=== PATIENT | female | born 1965 | race Two or more races ===

== ENCOUNTER 2019-09-10 02:50 | Emergency (ER) | payer MEDICARE, OTHER ==
[~2019-09-10] VITALS: Ht 157.5 cm; Wt 81.6 kg
[2019-09-10] MEDS ORDERED: methylPREDNISolone SOD SUCC 125 MG/2 ML VL IM ONE (04:15)
[2019-09-10] MEDS ORDERED: KETOROLAC TROMETH 60MG/2ML VIAL IM ONE (04:15)
[2019-09-10 04:50] VITALS: BP 131/80
[2019-09-10] MEDS ORDERED: ACETAMINOPHEN 500 MG TAB PO ONE (05:00)
== END 2019-09-10 06:08 | disposition home or self-care (01) ==
LOC: ER 02:52
DX: M54.16 Radiculopathy, lumbar region (principal); M48.061 Spinal stenosis, lumbar region without neurogenic claudication; M47.898 Other spondylosis, sacral and sacrococcygeal region; R50.9 Fever, unspecified; N39.0 Urinary tract infection, site not specified; M25.562 Pain in left knee; M25.561 Pain in right knee; G89.29 Other chronic pain; M54.5 Low back pain; I10 Essential (primary) hypertension; E78.5 Hyperlipidemia, unspecified; Z88.5 Allergy status to narcotic agent
CPT/HCPCS: 72131; 82962; 96372; 99284; J1885; J2930

== ENCOUNTER → 2022-07-07 | Outpatient (CLI) | payer OTHER ==
[2022-07-07 07:16] LABS: Basophils # (auto) 0 10 ^3/uL (0-0.2); Basophils % (auto) 0.7 % (0.0-2.0); Eosinophils # (auto) 0.2 10 ^3/uL (0-0.8); Eosinophils % (auto) 2.9 % (0.0-7.0); Hematocrit 37.8 % (36.0-46.0); Hemoglobin 12.6 g/dL (12.2-16.2); Lymphocytes # (auto) 3.4 10 ^3/uL (0.4-5.4); Mean Corpuscular Hemoglobin 29.7 pg (28.0-32.0); Mean Corpuscular Hgb Conc. 33.4 g/dL (32.0-36.0); Mean Corpuscular Volume 88.8 fL (80.0-100.0); Monocytes # (auto) 0.5 10 ^3/uL (0-1.3); Monocytes % (auto) 9.1 % (0.0-12.0); Neutrophils # (auto) 1.9 10 ^3/uL (1.6-8.6); Neutrophils % (auto) 31.7 % (37.0-80.0); Nucleated Red Blood Cells % 0.2 %; Red Blood Cells 4.26 10^6/uL (4.0-5.20)
[2022-07-07 07:20] LABS: Lymphocytes % (auto) 55.6 % (10.0-50.0)
[2022-07-07 07:54] LABS: Urine Bacteria NONE SEEN /hpf (None Seen); Urine Blood TRACE /uL (Negative); Urine Hyaline Cast FEW /lpf (0 - 2); Urine Specific Gravity 1.015 (1.001-1.035); Urine WBC 1 /hpf (0 - 5)
[2022-07-07 08:00] LABS: Albumin 3.7 g/dL (3.4-5.0); Calcium 9.1 mg/dL (8.5-10.1); Potassium 3.9 mmol/L (3.5-5.1)
[2022-07-07 08:05] LABS: Bilirubin, Total 0.3 mg/dL (0.2-1.0); Total Protein 7.4 g/dL (6.4-8.2)
[2022-07-07 08:53] LABS: BUN/Creatinine Ratio 34.7 (10.0-20.0)
== END | disposition home or self-care (01) ==
LOC: LAB 06:53
PROVIDERS: ATTEND Family Medicine
DX: Z00.01 Encounter for general adult medical examination with abnormal findings (principal)
CPT/HCPCS: 36415; 80053; 80061; 81001; 82306; 83036; 84443; 85025; 87086

== ENCOUNTER 2022-09-08 14:24 | Emergency (ER) | payer OTHER ==
[~2022-09-08] VITALS: Ht 157.5 cm; Wt 70.9 kg
[2022-09-08] MEDS ORDERED: PROMETHAZINE HCL 25 MG/ML 1ML IM ONE (16:30)
[2022-09-08] MEDS ORDERED: MEPERIDINE HCL (50 MG/ML) 1 ML VIAL IM ONE (16:30)
[2022-09-08 16:37] VITALS: BP 130/73
== END 2022-09-08 17:03 | disposition home or self-care (01) ==
LOC: ER 14:24
DX: G89.29 Other chronic pain (principal); M54.50 Low back pain, unspecified; E78.5 Hyperlipidemia, unspecified; I10 Essential (primary) hypertension; Z88.6 Allergy status to analgesic agent; X50.1XXA Overexertion from prolonged static or awkward postures, initial encounter; Y93.01 Activity, walking, marching and hiking; Y92.89 Other specified places as the place of occurrence of the external cause; Y99.8 Other external cause status
CPT/HCPCS: 96372; 99284; J2175; J2550

== ENCOUNTER → 2022-10-26 | Outpatient (CLI) | payer OTHER ==
[2022-10-26 07:37] LABS: Calcium 9.2 mg/dL (8.5-10.1)
[2022-10-26 07:43] LABS: BUN/Creatinine Ratio 20.3 (10.0-20.0); Bilirubin, Total 0.4 mg/dL (0.2-1.0); Total Protein 7.7 g/dL (6.4-8.2)
== END | disposition home or self-care (01) ==
LOC: LAB 06:30
PROVIDERS: ATTEND Family Medicine
DX: E11.65 Type 2 diabetes mellitus with hyperglycemia (principal); E78.5 Hyperlipidemia, unspecified
CPT/HCPCS: 36415; 80053; 80061; 83036

== ENCOUNTER → 2023-03-14 | Outpatient (CLI) | payer OTHER ==
[2023-03-14 08:00] LABS: Alanine Aminotransferase 24 U/L (7-40); Albumin 4.5 g/dL (3.2-4.8); Alkaline Phosphatase 74 U/L (46-116); Anion Gap 7 (5-15); Aspartate Aminotransferase 25 U/L (13-40); BUN/Creatinine Ratio 12.9 (10.0-20.0); Blood Urea Nitrogen 8 mg/dL (9-23); Calcium 9.7 mg/dL (8.5-10.1); Carbon Dioxide 28 mmol/L (20-30); Chloride 106 mmol/L (98-107); Glucose 111 mg/dL (74-106); Sodium 141 mmol/L (136-145); Triglycerides 147 mg/dL (< 150)
[2023-03-14 08:01] LABS: Bilirubin, Direct 0.1 mg/dL (<0.3); Cholesterol 170 mg/dL (< 200); LDL Cholesterol 102 mg/dL (< 100)
[2023-03-14 08:02] LABS: Bilirubin, Total 0.4 mg/dL (0.2-1.0); HDL Cholesterol 46 mg/dL (40-59); Total Protein 6.9 g/dL (5.7-8.2)
== END | disposition home or self-care (01) ==
LOC: LAB 06:34
PROVIDERS: ATTEND Family Medicine
DX: E11.65 Type 2 diabetes mellitus with hyperglycemia (principal); E78.5 Hyperlipidemia, unspecified
CPT/HCPCS: 36415; 80048; 80061; 80076; 83036

== ENCOUNTER → 2023-03-19 | Outpatient (CLI) | payer OTHER | END | disposition home or self-care (01) | LOC: LAB 11:37 | PROVIDERS: ATTEND Family Medicine | DX: K92.1 Melena (principal); R19.7 Diarrhea, unspecified | CPT/HCPCS: 82270; 87045; 87427 ==

== ENCOUNTER 2023-05-23 09:39 | Day surgery (SDC) | payer OTHER, MEDICAID ==
[2023-05-18 09:07] LABS: Basophils # (auto) 0 10 ^3/uL (0-0.2); Basophils % (auto) 0.6 % (0.0-2.0); Eosinophils # (auto) 0.2 10 ^3/uL (0-0.8); Eosinophils % (auto) 3.5 % (0.0-7.0); Hematocrit 37.5 % (36.0-46.0); Hemoglobin 12.1 g/dL (12.2-16.2); Lymphocytes # (auto) 2.2 10 ^3/uL (0.4-5.4); Lymphocytes % (auto) 39.8 % (10.0-50.0); Mean Corpuscular Hemoglobin 29.4 pg (28.0-32.0); Mean Corpuscular Hgb Conc. 32.2 g/dL (32.0-36.0); Mean Corpuscular Volume 91.3 fL (80.0-100.0); Monocytes # (auto) 0.4 10 ^3/uL (0-1.3); Monocytes % (auto) 7.4 % (0.0-12.0); Neutrophils # (auto) 2.7 10 ^3/uL (1.6-8.6); Neutrophils % (auto) 48.7 % (37.0-80.0); Nucleated Red Blood Cells % 0.1 %; Red Blood Cells 4.11 10^6/uL (4.0-5.20); Red Cell Distribution Width 13.6 % (11.8-14.3); White Blood Cell 5.5 10^3/uL (4.4-10.8)
[2023-05-18 09:14] LABS: Urine Bacteria FEW /hpf (None Seen); Urine Blood TRACE /uL (Negative); Urine Clarity Clear (Clear); Urine Protein, UAD Negative (Negative); Urine Specific Gravity 1.006 (1.001-1.035); Urine Urobilinogen Normal (Negative); Urine WBC <1 /hpf (0 - 5)
[2023-05-18 09:26] LABS: INR 1.04 (0.9-1.15); Partial Thromboplastin Time 27.9 SEC (24.5-34.5); Prothrombin Time 10.9 sec (9.3-11.8)
[2023-05-18 09:29] LABS: Urine Color Straw (Yellow)
[2023-05-18 10:00] LABS: Alanine Aminotransferase 20 U/L (7-40); Albumin 4.6 g/dL (3.2-4.8); Alkaline Phosphatase 97 U/L (46-116); Anion Gap 6 (5-15); Aspartate Aminotransferase 25 U/L (13-40); BUN/Creatinine Ratio 13.3 (10.0-20.0); Blood Urea Nitrogen 8 mg/dL (9-23); Calcium 9.7 mg/dL (8.5-10.1); Carbon Dioxide 27 mmol/L (20-30); Chloride 109 mmol/L (98-107); Glucose 106 mg/dL (74-106); Potassium 3.8 mmol/L (3.5-5.1); Sodium 142 mmol/L (136-145)
[2023-05-18 10:01] LABS: Bilirubin, Total 0.3 mg/dL (0.2-1.0)
[~2023-05-23] VITALS: Ht 157.5 cm; Wt 70.3 kg
[~2023-05-23 09:39] MED LIST: CHONCAP OR; DIPH25CA66 PO; DULO60CA41 PO; ENAL1TAB43 PO; GLUC1TAB22 PO; HYDR-4795 PO; IBUP-1456 PO; LIDO5CRE14 EX; LIDO5DIS21 TOP; MELA1TAB PO; METF-489 PO; PANT40TA2 PO; PRAV20TA3 PO; [UNRECOGNIZED DRUG - CODE] PO
[2023-05-23] MEDS ORDERED: fentaNYL CITRATE 100 MCG/2 ML VL ONE (10:19)
[2023-05-23] MEDS ORDERED: PROPOFOL 10 MG/ML 20 ML IV ONE (10:19)
[2023-05-23] MEDS ORDERED: ONDANSETRON HCL 4 MG/2 ML VIAL ONE (10:19)
[2023-05-23] MEDS ORDERED: LIDOCAINE 2% (LOCAL ANESTH.) PF 5ml SDV ONE (10:19)
[2023-05-23] MEDS ORDERED: MIDAZOLAM HCL 2MG/2ML 2ml VIAL (1mg/ml) ONE (10:19)
[2023-05-23] MEDS ORDERED: GLYCOPYRROLATE 0.2 MG/ML 1ML VIAL ONE (10:19)
[2023-05-23] MEDS ORDERED: KETAMINE 50mg/ML 1ml syringe ONE (10:31)
[2023-05-23 11:35] VITALS: RESP 17; TEMP 97.5; O2SAT 96
[2023-05-23] MEDS ORDERED: ONDANSETRON HCL 4 MG/2 ML VIAL IV PRN (11:45)
[2023-05-23] MEDS ORDERED: HYDROmorphone HCL 2 MG/ML VL/or syr IV PRN (11:45)
[2023-05-23 12:08] VITALS: BP 111/63; PULSE 74; RESP 12; O2SAT 97
== END 2023-05-23 12:15 | disposition home or self-care (01) ==
LOC: GI 09:39
PROVIDERS: ATTEND Internal Medicine Gastroenterology
DX: K59.00 Constipation, unspecified (principal); K64.8 Other hemorrhoids; K44.9 Diaphragmatic hernia without obstruction or gangrene; K29.70 Gastritis, unspecified, without bleeding; K31.7 Polyp of stomach and duodenum; K21.00 Gastro-esophageal reflux disease with esophagitis, without bleeding; E11.9 Type 2 diabetes mellitus without complications; Z88.1 Allergy status to other antibiotic agents; Z88.8 Allergy status to other drugs, medicaments and biological substances; Z98.890 Other specified postprocedural states
CPT/HCPCS: 36415; 43239; 45378; 80053; 81001; 82962; 85025; 85610; 85730; 88305; 88312; 88342; J2001; J2250; J2405; J2704; J3010; J7030

== ENCOUNTER → 2023-10-16 | Outpatient (CLI) | payer OTHER, MEDICAID ==
[2023-10-16 08:30] LABS: Creatinine, Urine 92.18 mg/dL (30.0-125.0)
[2023-10-16 08:32] LABS: Alanine Aminotransferase 32 U/L (7-40); Albumin 4.3 g/dL (3.2-4.8); Alkaline Phosphatase 68 U/L (46-116); Anion Gap 4 (5-15); Aspartate Aminotransferase 19 U/L (13-40); Blood Urea Nitrogen 12 mg/dL (9-23); Calcium 9.5 mg/dL (8.5-10.1); Carbon Dioxide 27 mmol/L (20-30); Chloride 108 mmol/L (98-107); Glucose 88 mg/dL (74-106); LDL Cholesterol 107 mg/dL (< 100); Micro Albumin < 3.0 mg/L (<30.0); Sodium 139 mmol/L (136-145); Triglycerides 111 mg/dL (< 150)
[2023-10-16 08:33] LABS: Bilirubin, Total 0.5 mg/dL (0.2-1.0); Cholesterol 181 mg/dL (< 200); HDL Cholesterol 60 mg/dL (40-59); Total Protein 6.5 g/dL (5.7-8.2)
== END | disposition home or self-care (01) ==
LOC: LAB 07:16
PROVIDERS: ATTEND Family Medicine
DX: I12.9 Hypertensive chronic kidney disease with stage 1 through stage 4 chronic kidney disease, or unspecified chronic kidney disease (principal); E11.22 Type 2 diabetes mellitus with diabetic chronic kidney disease; N18.9 Chronic kidney disease, unspecified; E78.2 Mixed hyperlipidemia
CPT/HCPCS: 36415; 80053; 80061; 82043; 82570; 83036

== ENCOUNTER → 2024-02-14 | Outpatient (CLI) | payer OTHER, MEDICAID ==
[2024-02-14 07:47] LABS: Alanine Aminotransferase 39 U/L (7-40); Albumin 4.1 g/dL (3.2-4.8); Alkaline Phosphatase 66 U/L (46-116); Anion Gap 8 (5-15); Aspartate Aminotransferase 23 U/L (13-40); BUN/Creatinine Ratio 29.5 (10.0-20.0); Bilirubin, Total 0.3 mg/dL (0.2-1.0); Blood Urea Nitrogen 18 mg/dL (9-23); Calcium 9.5 mg/dL (8.7-10.4); Carbon Dioxide 25 mmol/L (20-31); Chloride 107 mmol/L (98-107); Cholesterol 173 mg/dL (< 200); Creatinine, Urine 63.17 mg/dL (30.0-125.0); Glucose 91 mg/dL (74-106); HDL Cholesterol 60 mg/dL (40-59); LDL Cholesterol 100 mg/dL (< 100); Sodium 140 mmol/L (136-145); Total Protein 6.5 g/dL (5.7-8.2); Triglycerides 114 mg/dL (< 150)
[2024-02-14 07:50] LABS: Micro Albumin < 3.0 mg/L (<30.0)
== END | disposition home or self-care (01) ==
LOC: LAB 06:42
PROVIDERS: ATTEND Family Medicine
DX: I12.9 Hypertensive chronic kidney disease with stage 1 through stage 4 chronic kidney disease, or unspecified chronic kidney disease (principal); N18.9 Chronic kidney disease, unspecified; E11.22 Type 2 diabetes mellitus with diabetic chronic kidney disease; E78.5 Hyperlipidemia, unspecified; E11.65 Type 2 diabetes mellitus with hyperglycemia
CPT/HCPCS: 36415; 80053; 80061; 82043; 82570; 83036

== ENCOUNTER → 2024-06-10 | Outpatient (CLI) | payer OTHER, MEDICAID ==
[2024-06-10 07:27] LABS: Albumin 4.6 g/dL (3.2-4.8); Alkaline Phosphatase 59 U/L (46-116); Anion Gap 8 (5-15); Aspartate Aminotransferase 20 U/L (13-40); BUN/Creatinine Ratio 17.1 (10.0-20.0); Bilirubin, Total 0.4 mg/dL (0.2-1.0); Blood Urea Nitrogen 13 mg/dL (9-23); Calcium 9.8 mg/dL (8.7-10.4); Carbon Dioxide 25 mmol/L (20-31); Chloride 105 mmol/L (98-107); Cholesterol 184 mg/dL (< 200); Glucose 101 mg/dL (74-106); Potassium 4.3 mmol/L (3.5-5.1); Sodium 138 mmol/L (136-145); Total Protein 6.8 g/dL (5.7-8.2); Triglycerides 98 mg/dL (< 150)
[2024-06-10 07:37] LABS: Alanine Aminotransferase 43 U/L (7-40); HDL Cholesterol 72 mg/dL (40-59); LDL Cholesterol 105 mg/dL (< 100)
== END | disposition home or self-care (01) ==
LOC: LAB 06:26
PROVIDERS: ATTEND Family Medicine
DX: I12.9 Hypertensive chronic kidney disease with stage 1 through stage 4 chronic kidney disease, or unspecified chronic kidney disease (principal); E11.22 Type 2 diabetes mellitus with diabetic chronic kidney disease; N18.9 Chronic kidney disease, unspecified; E11.65 Type 2 diabetes mellitus with hyperglycemia; E78.2 Mixed hyperlipidemia
CPT/HCPCS: 36415; 80053; 80061; 83036

== ENCOUNTER → 2024-07-03 | Outpatient (CLI) | payer OTHER, MEDICAID | END | disposition home or self-care (01) | LOC: LAB 15:06 | PROVIDERS: ATTEND Family Medicine | DX: Z12.11 Encounter for screening for malignant neoplasm of colon (principal); Z13.89 Encounter for screening for other disorder; Z00.01 Encounter for general adult medical examination with abnormal findings | CPT/HCPCS: 82270 ==

== ENCOUNTER → 2024-07-15 | Outpatient (CLI) | payer OTHER, MEDICAID ==
[2024-07-16 08:07] LABS: Immunoglobulin A 184 mg/dL (87-352)
== END | disposition home or self-care (01) ==
LOC: LAB 09:03
PROVIDERS: ATTEND Internal Medicine Gastroenterology
DX: R10.9 Unspecified abdominal pain (principal)
CPT/HCPCS: 82784; 83516; 86003; 86255

== ENCOUNTER 2024-08-20 07:13 | Emergency (ER) | payer OTHER, MEDICAID ==
[~2024-08-20] VITALS: Ht 157.5 cm; Wt 78.1 kg
[2024-08-20 07:48] VITALS: TEMP 97.6; O2SAT 96
[2024-08-20] MEDS: MEPERIDINE HCL (50 MG/ML) 1 ML VIAL IM ONE (08:32)
--- NOTE | 2024-08-20 09:06 | ED.PDOC ---
Back pain HPI HPI Comments 59-year-old female with a history of chronic back pain presents with a chief complaint of atraumatic nonradiating lower back pain. Reports she gets occasional flare-ups in his feels like the same symptoms she usually gets. History follows up with pain management and currently takes Cymbalta and [place].. Denies history of chronic steroid use or history of osteoporosis Denies any history of cancer Denies fevers chills night sweats nausea vomiting unintentional weight loss Denies IV drug use history of HIV/TB Denies abdominal "tearing" pain Denies syncope Denies urinary incontinence or urinary changes Denies numbness tingling of the groin or inner thigh Denies previous back procedure or surgery Chief Complaint: Back Pain Time Seen by MD: 07:37 Primary Care Provider: EVELYN Ponce Notes: Nurses Notes, Medications, Allergies Allergies: Coded Allergies: Celecoxib (Unverified Allergy, Mild, rash, 05/21/23) Codeine (Verified Allergy, Mild, 09/10/19) Penicillins (Unverified Allergy, Mild, rash, 05/21/23) Home Meds Reported Medications Diphenhydramine Hcl (Benadryl Allergy) 25 Mg Cap, 25 MG PO PRN, CAP 05/21/23 Melatonin (Melatonin Cr 5 mg) 1 Tab Tab, 1 TAB PO DAILY, TAB 05/21/23 Chondroitin Sulfate-Vitamin C- (Chondroitin Sulfate) Complex Cap, 1 OR DAILY, CAP 05/21/23 Glucosamine Hydrochloride (Glucosamine) 1,500 Mg Tab, 1500 MG PO DAILY, TAB 05/21/23 Black Pepper-Turmeric (Turmeric Plus Black Peppe 5-500 mg) 1 Cap Cap, 2 CAP PO DAILY, CAP 05/21/23 Lidocaine (Anorectal) (Lidocaine 5%) 5 % Cre, 5 % EX, CRE 05/21/23 Lidocaine (LIDODERM 5% TOPICAL PATCH) 1 Patch Ph, 1 PATCH TOP, PATCH 05/21/23 Pantoprazole Sodium Sesquihydr (Protonix) 40 Mg Tab, 20 MG PO DAILY, #30 TAB 05/21/23 Duloxetine Hcl (Cymbalta) 60 Mg Cap, 60 MG PO DAILY, CAP 05/21/23 Ibuprofen (Ibuprofen) 800 Mg Tab, 800 MG PO Q8HP, TAB 05/21/23 Hydrocodone-Acetaminophen (Hydrocodone Bitartrate/AC 7.5-325 mg) 1 Tab Tab, 1 TAB PO PRN, TAB 05/21/23 Pravastatin Sodium (PRAVACHOL TABLET) 20 Mg Tb, 20 MG PO DAILY, TAB 05/21/23 Enalapril Maleate (VASOTEC TABLET) 2.5 Mg Tb, 2.5 MG PO DAILY, TAB 05/21/23 Metformin Hydrochloride (METFORMIN HCL ER) 500 Mg Tab, 500 MG PO DAILY, TAB 05/21/23 Information Source: Patient Mode of Arrival: Ambulatory Past Medical History PAST MEDICAL HISTORY: Arthritis, Depression, High Lipids, HTN QUALITY REP History: No Pertinent QUALITY REP History Family History Family History: Reviewed,noncontributory to illness, No family hx of Cancer, No family hx of DM, No family hx of Heart gabriella, No family hx of HTN, No family hx ofKidney gabriella, No family hx of Liver gabriella, No family hx of Lung gabriella, No family hx of Stroke Social History Smoker: Non-Smoker Alcohol: Denies ETOH Use Drugs: Denies Drug Use Lives In: Home All Other Systems: Reviewed and Negative (Per HPI) Physical Exam General Appearance: No Apparent Distress, Normal HEENT: Normal ENT Inspection, Pharynx Normal, TMs Normal Neck: Full Range of Motion, Non-Tender, Normal, Normal Inspection Respiratory: Chest Non-Tender, Lungs Clear, No Accessory Muscle Use, No Re spiratory Distress, Normal Breath Sounds Cardiovascular: No Edema, No JVD, No Murmur, No Gallop, Normal Peripheral Pulses, Regular Rate/Rhythm Breast Exam: Deferred Gastrointestinal: No Organomegaly, Non Tender, No Pulsatile Mass, Normal Bowel Sounds, Soft Genitalia: Deferred Pelvic: Deferred Rectal: Deferred Extremities: No calf tenderness, Normal capillary refill, Normal inspection, Normal range of motion, Non-tender, No pedal edema Musculoskeletal : Extremity Location: Back (No gross abnormality on inspection. No bony step- offs on palpation. No midline tenderness. Bilateral paraspinal lumbar tenderness to palpation. Full forward flexion-extension and lateral movements and distal neuro sensation intact) Apperance: Normal Neurologic: Alert, information management manager II-XII nml as Tested, No Motor Deficits, Normal Affect, Normal Mood, No Sensory Deficits Cerebellar Function: Normal Reflexes: Normal Skin: Dry, Normal Color, Warm Lymphatic: No Adenopathy Was a procedure done? Was a procedure done?: No Back Pain Differential Dx Differential Diagnosis: Musculoskeletal Pain X-Ray, Labs, Meds, VS Vital Signs Date Time Temp Pulse Resp B/P (MAP) Pulse Ox O2 Delivery O2 Flow Rate FiO2 08/20/24 08:32 74 18 136/83 08/20/24 07:48 74 18 96 Room Air 08/20/24 07:48 97.6 74 18 136/83 (100) 96 97.6 08/20/24 07:20 97.6 74 18 136/83 (100) 96 97.6 Current Medications Medications (Trade) Dose Ordered Sig/Cassie Route Start Time Stop Time Status Last Admin Meperidine HCl (Demerol Injection) 50 mg ONCE ONCE IM 08/20/24 08:15 08/20/24 08:18 DC 08/20/24 08:32 X-Ray, Labs, Meds, VS Comment I considered cauda equina, spinal cord compression, vertebral malignancy/mets, acute spinal fracture, vertebral osteomyelitis, epidural abscess, infected or obstructed kidney stone, however this is less likely as the patient does not present with lower back pain red flags symptoms such as bowel or bladder dysfunction, saddle anesthesia, paresthesia, and without any history of malignancy or recent back trauma or spinal interventions. Therefore further imaging studies such as a lumbar MRI were not indicated on today's visit. Presentation most consistent with nonemergent musculoskeletal etiology ED workup: Defer imaging and lab work for outpatient follow up at this time Disposition: Discharge. Strict return precautions discussed with the patient with full understanding. Supportive care advised (rest, ice, heat, NSAIDs, stretching exercises) Massage muscles with cold pack or ice for 20 minutes 4 times per day. Usually most useful if there is swelling during the first 48 hours Heating pad on the most painful area for 20 minutes to relieve muscle spasm Sleep and the most comfortable sleeping position (usually on the side with knees bent) Light stretching, no strenuous activity, avoid frequent bending, avoid carrying heavy objects Discussed possible benefits of yoga and acupuncture On reevaluation, patient had symptomatic improvement. Patient is stable for discharge at this time. External notes reviewed. Test results and diagnostic imaging interpreted. All diagnostic findings, discharge care, education and instructions provided Follow-up with PCP in 2 to 3 days Patient verbalized understanding and agreed to treatment plan Vital signs stable, afebrile, no acute distress noted Patient ambulatory with strong steady gait Advised to return precautions for any new or worsening symptoms, return to ER immediately for re-evaluation Patient is aware that the purpose of this visit was for an acute medical emergency requiring emergent stabilization. Chronic conditions, including malignancies have not been ruled out. Patient is instructed to follow up with PCP as directed and discharge instructions for continued care and workup. If unable to arrange follow-up, patient is to return to the emergency department for reassessment. Patient (parent or legal guardian if applicable) was given verbal and written discharge instructions and acknowledges understanding. Time of 1ST Reevaluation: 09:04 Reevaluation 1ST: Improved Patient Education/Counseling: Diagnosis, Treatment Family Education/Counseling: Diagnosis, Treatment Departure 1 Departure Time of Disposition: 09:05 Impression: Primary Impression: Acute exacerbation of chronic low back pain Disposition: 01 HOME / SELF CARE / HOMELESS Condition: Fair Discharged With: Relative Critical Care Note Critical Care Time?: No Stability Stability form required: No Heart Score Heart Score: Heart Score Response (Comments) Value History N/A 0 EKG N/A 0 Age N/A 0 Risk Factors N/A 0 Troponin N/A 0 Total 0 GOLDIE ALEMAN NP August 20, 2024 09:06
[2024-08-20 09:27] VITALS: BP 126/75; PULSE 74; RESP 20
== END 2024-08-20 09:36 | disposition home or self-care (01) ==
LOC: ER 07:21
DX: G89.29 Other chronic pain (principal); M54.50 Low back pain, unspecified; F32.A Depression, unspecified; I10 Essential (primary) hypertension; M19.90 Unspecified osteoarthritis, unspecified site; E78.5 Hyperlipidemia, unspecified; Z79.84 Long term (current) use of oral hypoglycemic drugs; Z79.899 Other long term (current) drug therapy; Z88.0 Allergy status to penicillin; Z88.5 Allergy status to narcotic agent
CPT/HCPCS: 96372; 99283; J2175

== ENCOUNTER 2024-09-29 10:41 | Emergency (ER) | payer OTHER, MEDICAID ==
[~2024-09-29] VITALS: Ht 157.5 cm; Wt 75.1 kg
[2024-09-29 11:16] VITALS: TEMP 98.3; O2SAT 95
--- NOTE | 2024-09-29 12:13 | ED.PDOC ---
History of Present Illness HPI Comments 59 year old female with a Hx of HTN and a prior Back Surgery and a hx of Chx Back Pain who presents to the ED for the c/c of atraumatic Lower Back pain. Pt states that her back pain started 3x months ago and has progressively worsened. Pt notes that she was here 1x month ago for the same c/c. Pt notes that she currently takes prescribes [place] 7.5mg every six hours for pain management. Medication helps temp. Denies history of chronic steroid use or history of osteoporosis Denies any history of cancer Denies fevers chills night sweats nausea vomiting unintentional weight loss Denies IV drug use history of HIV/TB Denies abdominal "tearing" pain Denies syncope Denies urinary incontinence or urinary changes Denies numbness tingling of the groin or inner thigh Chief Complaint: Back Pain Time Seen by MD: 12:00 Primary Care Provider: WILLIE Reviewed Notes: Nurses Notes, Medications, Allergies Allergies: Coded Allergies: Celecoxib (Unverified Allergy, Mild, rash, 05/21/23) Codeine (Verified Allergy, Mild, 09/10/19) Penicillins (Unverified Allergy, Mild, rash, 05/21/23) Home Meds Reported Medications Diphenhydramine Hcl (Benadryl Allergy) 25 Mg Cap, 25 MG PO PRN, CAP 05/21/23 Melatonin (Melatonin Cr 5 mg) 1 Tab Tab, 1 TAB PO DAILY, TAB 05/21/23 Chondroitin Sulfate-Vitamin C- (Chondroitin Sulfate) Complex Cap, 1 OR DAILY, CAP 05/21/23 Glucosamine Hydrochloride (Glucosamine) 1,500 Mg Tab, 1500 MG PO DAILY, TAB 05/21/23 Black Pepper-Turmeric (Turmeric Plus Black Peppe 5-500 mg) 1 Cap Cap, 2 CAP PO DAILY, CAP 05/21/23 Lidocaine (Anorectal) (Lidocaine 5%) 5 % Cre, 5 % EX, CRE 05/21/23 Lidocaine (LIDODERM 5% TOPICAL PATCH) 1 Patch Ph, 1 PATCH TOP, PATCH 05/21/23 Pantoprazole Sodium Sesquihydr (Protonix) 40 Mg Tab, 20 MG PO DAILY, #30 TAB 05/21/23 Duloxetine Hcl (Cymbalta) 60 Mg Cap, 60 MG PO DAILY, CAP 05/21/23 Ibuprofen (Ibuprofen) 800 Mg Tab, 800 MG PO Q8HP, TAB 05/21/23 Hydrocodone-Acetaminophen (Hydrocodone Bitartrate/AC 7.5-325 mg) 1 Tab Tab, 1 TAB PO PRN, TAB 05/21/23 Pravastatin Sodium (PRAVACHOL TABLET) 20 Mg Tb, 20 MG PO DAILY, TAB 05/21/23 Enalapril Maleate (VASOTEC TABLET) 2.5 Mg Tb, 2.5 MG PO DAILY, TAB 05/21/23 Metformin Hydrochloride (METFORMIN HCL ER) 500 Mg Tab, 500 MG PO DAILY, TAB 05/21/23 Information Source: Patient Mode of Arrival: Ambulatory Severity: Moderate Timing: Months Prehospital treatment: None Past Medical History PAST MEDICAL HISTORY: Arthritis, Depression, High Lipids, HTN DISCIPLINARY HEARING OFFICER History: No Pertinent DISCIPLINARY HEARING OFFICER History Family History Family History: Reviewed,noncontributory to illness, No family hx of Cancer, No family hx of DM, No family hx of Heart gabriella, No family hx of HTN, No family hx of Kidney gabriella, No family hx of Liver gabriella, No family hx of Lung gabriella, No family hx of Stroke Social History Smoker: Non-Smoker Alcohol: Denies ETOH Use Drugs: Denies Drug Use Lives In: Home Constitutional: denies: chills, diaphoresis, fatigue, fever, malaise, sweats, weakness, others EENTM: denies: blurred vision, double vision, ear bleeding, ear discharge, ear drainage, ear pain, ear ringing, eye pain, eye redness, hearing loss, mouth pain, mouth swelling, nasal discharge, nose bleeding, nose congestion, nose pain, photophobia, tearing, throat pain, throat swelling, voice changes, others Respiratory: denies: cough, hemoptysis, orthopnea, SOB at rest, shortness of breath, SOB with excertion, stridor, wheezing, others Cardiovascular: denies: chest pain, dizzy spells, diaphoresis, Dyspnea on exertion, edema, irregular heart beat, left arm pain, lightheadedness, palpitations, PND, syncope, others Gastrointestinal: denies: abdomen distended, abdominal pain, blood streaked bowels, constipated, diarrhea, dysphagia, difficulty swallowing, hematemesis, melena, nausea, poor appetite, poor fluid intake, rectal bleeding, rectal pain, vomiting, others Genitourinary: denies: abnormal vagina bleeding, burning, dyspareunia, dysuria, flank pain, frequency, hematuria, incontinence, pain, , vagina discharge, urgency, others Neurological: denies: dizziness, fainting, headache, left sided numbness, left sided weakness, numbness, paresthesia, pre-existing deficit, right sided numbness, right sided weakness, seizure, speech problems, tingling, tremors, weakness, others Musculoskeletal: reports: back pain; denies: gout, joint pain, joint swelling, muscle pain, muscle stiffness, neck pain, others Integumetry: denies: bruises, change in color, change in hair/nails, dryness, laceration, lesions, lumps, rash, wounds, others Allergic/Immunocompromised: denies: Difficulty Healing, Frequent Infections, Hives, Itching, others Hematologic/Lymphatic: denies: anemia, blood clots, easy bleeding, easy bruising, swollen glands, others Endocrine: denies: excessive hunger, excessive sweating, excessive thirst, excessive urination, flushing, intolerance to cold, intolerance to heat, unexplained weight gain, unexplained weight loss, others Psychiatric: denies: anxiety, bipolar disorder, depression, hopeless, panic disorder, schizophrenia, sleepless, suicidal, others All Other Systems: Reviewed and Negative Physical Exam General Appearance: Mild Distress, Normal, Obese HEENT: Normal ENT Inspection, Pharynx Normal, TMs Normal Neck: Full Range of Motion, Non-Tender, Normal, Normal Inspection Respiratory: Chest Non-Tender, Lungs Clear, No Accessory Muscle Use, No Respiratory Distress, Normal Breath Sounds Cardiovascular: No Edema, No JVD, No Murmur, Normal Peripheral Pulses, Regular Rate/Rhythm Breast Exam: Deferred Gastrointestinal: Non Tender, No Pulsatile Mass, Normal Bowel Sounds, Soft Genitalia: Deferred Pelvic: Deferred Rectal: Deferred Extremities: No calf tenderness, Normal capillary refill, Normal inspection, Normal range of motion, Non-tender, No pedal edema Musculoskeletal : Location: Bilateral Extremity Location: Back (no agross abnormality to lower back pain with forward flextion, extenion and forward movements, no soft tissue swelling, open wounds, no midline TTP no bony step offs on palpitation, RT straight leg raise test positive, neural vascual sensation intact) Apperance: Normal Neurologic: Alert, No Motor Deficits, Normal Mood Cerebellar Function: Normal Reflexes: Normal Skin: Dry, Normal Color, Warm Lymphatic: No Adenopathy Was a procedure done? Was a procedure done?: No Differential Dx Considerations may include: back strain X-Ray, Labs, Meds, VS Vital Signs Date Time Temp Pulse Resp B/P (MAP) Pulse Ox O2 Delivery O2 Flow Rate FiO2 09/29/24 12:30 83 16 130/70 09/29/24 11:16 83 16 95 Room Air 09/29/24 11:16 98.3 83 16 130/70 (90) 95 98.3 09/29/24 10:49 98.3 83 16 130/70 (90) 95 98.3 Current Medications Medications (Trade) Dose Ordered Sig/Cassie Route Start Time Stop Time Status Last Admin Meperidine HCl (Demerol Injection) 50 mg ONCE ONCE IM 09/29/24 12:15 09/29/24 12:16 DC 09/29/24 12:30 X-Ray, Labs, Meds, VS Comment 59 year old female with a Hx of HTN presents to the ED for the c/c of Lower Back pain. Patient arrives alert and oriented, ABC's intact, afebrile, vital signs stable, saturating well in room air I considered cauda equina, spinal cord compression, vertebral malignancy/mets, acute spinal fracture, vertebral osteomyelitis, epidural abscess, infected or obstructed kidney stone, however this is less likely as the patient does not present with lower back pain red flags symptoms such as bowel or bladder dysfunction, saddle anesthesia, paresthesia, and without any history of malignancy or recent back trauma or spinal interventions. Therefore further imaging studies such as a lumbar MRI were not indicated on today's visit. Presentation most consistent with nonemergent musculoskeletal etiology versus Flare up of her chronic back pain ED workup: Defer imaging and lab work for outpatient follow up at this time Disposition: Discharge. Strict return precautions discussed with the patient with full understanding. Supportive care advised Massage muscles with cold pack or ice for 20 minutes 4 times per day. Usually most useful if there is swelling during the first 48 hours Heating pad on the most painful area for 20 minutes to relieve muscle spasm Sleep and the most comfortable sleeping position (usually on the side with knees bent) Light stretching, no strenuous activity, avoid frequent bending, avoid carrying heavy objects Discussed possible benefits of yoga and acupuncture Patient was given:_Morphine 4mg IM. Tolerated medications with no adverse reaction. On reevaluation, patient had symptomatic improvement. Patient is stable for discharge at this time. External notes reviewed. Test results and diagnostic imaging interpreted. All diagnostic findings, discharge care, education and instructions provided Follow-up with PCP in 2 to 3 days Patient verbalized understanding and agreed to treatment plan Vital signs stable, afebrile, no acute distress noted Patient ambulatory with strong steady gait Advised to return precautions for any new or worsening symptoms, return to ER immediately for re-evaluation Patient is aware that the purpose of this visit was for an acute medical emergency requiring emergent stabilization. Chronic conditions, including m alignancies have not been ruled out. Patient is instructed to follow up with PCP as directed and discharge instructions for continued care and workup. If unable to arrange follow-up, patient is to return to the emergency department for reassessment. Patient (parent or legal guardian if applicable) was given verbal and written discharge instructions and acknowledges understanding. Additional MDM Review of External, Non-ED records: External records reviewed. Discussion with independent historian (EMS, family) history obtained from the patient/parents (if applicable) at bedside Chronic conditions affecting care: None Social determinants of health affecting care: None Consideration of admission (observation or admission): I considered escalation of care to admission for this patient, however given the reassuring workup, the patient is safe for outpatient management. Discussion with the Radiology: No Tests considered but not performed: Prescription medication considered but not given: Time of 1ST Reevaluation: 12:30 Reevaluation 1ST: Unchanged Patient Education/Counseling: Diagnosis, Treatment Family Education/Counseling: No Family Present Departure 1 Departure Time of Disposition: 13:30 Impression: Primary Impression: Acute exacerbation of chronic low back pain Disposition: 01 HOME / SELF CARE / HOMELESS Condition: Stable Discharged With: Spouse Critical Care Note Critical Care Time?: No Stability Stability form required: No Heart Score Heart Score: Heart Score Response (Comments) Value History N/A 0 EKG N/A 0 Age N/A 0 Risk Factors N/A 0 Troponin N/A 0 Total 0 I personally scribed for GOLDIE ALEMAN NP ([email or web address]) on 09/29/24 at 12:13. Electronically submitted by Anjel Estevez ([email or web address]). GOLDIE ALEMAN NP Sep 29, 2024 12:13
[2024-09-29 12:30] VITALS: BP 130/70; PULSE 83; RESP 16
[2024-09-29] MEDS: MEPERIDINE HCL (50 MG/ML) 1 ML VIAL IM ONE (12:30)
== END 2024-09-29 13:33 | disposition home or self-care (01) ==
LOC: ER 10:41
DX: M54.50 Low back pain, unspecified (principal); G89.29 Other chronic pain; M19.90 Unspecified osteoarthritis, unspecified site; I10 Essential (primary) hypertension; E78.5 Hyperlipidemia, unspecified; Z88.5 Allergy status to narcotic agent; Z88.0 Allergy status to penicillin; Z79.899 Other long term (current) drug therapy
CPT/HCPCS: 96372; 99283; J2175

== ENCOUNTER 2024-10-20 06:06 | Outpatient (CLI) | payer OTHER, MEDICAID ==
[2024-10-20 07:56] LABS: Albumin 4.7 g/dL (3.2-4.8); Alkaline Phosphatase 93 U/L (46-116); Anion Gap 10 (5-15); BUN/Creatinine Ratio 14.3 (10.0-20.0); Bilirubin, Total 0.3 mg/dL (0.2-1.0); Blood Urea Nitrogen 9 mg/dL (9-23); Carbon Dioxide 31 mmol/L (20-31); Chloride 100 mmol/L (98-107); Potassium 3.8 mmol/L (3.5-5.1); Sodium 141 mmol/L (136-145); Total Protein 6.9 g/dL (5.7-8.2)
[2024-10-20 08:00] LABS: Alanine Aminotransferase 53 U/L (7-40); Calcium 10.6 mg/dL (8.7-10.4); Glucose 125 mg/dL (74-106)
== END 2024-10-20 17:00 | disposition home or self-care (01) ==
LOC: LAB 06:06
PROVIDERS: ATTEND Family Medicine
DX: M17.10 Unilateral primary osteoarthritis, unspecified knee (principal); G89.4 Chronic pain syndrome
CPT/HCPCS: 36415; 80053; 83880

== ENCOUNTER → 2024-12-24 | Outpatient (CLI) | payer OTHER, MEDICAID ==
[2024-12-24 10:30] LABS: Anion Gap 11 (5-15); Carbon Dioxide 29 mmol/L (20-31)
[2024-12-24 10:31] LABS: Calcium 9.4 mg/dL (8.7-10.4)
[2024-12-24 10:35] LABS: BUN/Creatinine Ratio 19.2 (10.0-20.0); Blood Urea Nitrogen 14 mg/dL (9-23)
[2024-12-24 10:40] LABS: Chloride 96 mmol/L (98-107); Potassium 3.3 mmol/L (3.5-5.1); Sodium 136 mmol/L (136-145)
[2024-12-24 10:41] LABS: Glucose 113 mg/dL (74-106)
[2024-12-24 10:48] LABS: Microalb/Creat Ratio, Urine 14.0
== END | disposition home or self-care (01) ==
LOC: LAB 09:33
PROVIDERS: ATTEND Family Medicine
DX: E11.9 Type 2 diabetes mellitus without complications (principal)
CPT/HCPCS: 36415; 80048; 82043; 82570

== ENCOUNTER 2025-01-12 06:09 | Outpatient (CLI) | payer OTHER, MEDICAID ==
[2025-01-12 06:45] LABS: Triglycerides 122 mg/dL (< 150)
[2025-01-12 06:47] LABS: Cholesterol 166 mg/dL (< 200); HDL Cholesterol 55 mg/dL (40-59)
== END 2025-01-12 17:00 | disposition home or self-care (01) ==
LOC: LAB 06:09
PROVIDERS: ATTEND Family Medicine
DX: E78.2 Mixed hyperlipidemia (principal); R73.03 Prediabetes
CPT/HCPCS: 36415; 80061; 83036

== ENCOUNTER → 2025-04-14 | Outpatient (CLI) | payer OTHER, MEDICAID ==
[2025-04-14 06:52] LABS: Hematocrit 36.1 % (36.0-46.0); Hemoglobin 12.0 g/dL (12.2-16.2); Mean Corpuscular Hemoglobin 29.4 pg (28.0-32.0); Mean Corpuscular Volume 88.3 fL (80.0-100.0); Nucleated Red Blood Cells % 0.1 %
[2025-04-14 07:07] LABS: INR 1.0 (0.9-1.15); Partial Thromboplastin Time 25.4 SEC (24.5-34.5); Prothrombin Time 10.6 sec (9.3-11.8)
[2025-04-14 07:22] LABS: Total Iron Binding Capacity 291.0 ug/dL (250-425)
[2025-04-14 07:24] LABS: Iron 49.0 ug/dL (50-170)
[2025-04-14 07:27] LABS: Albumin 4.7 g/dL (3.2-4.8); Alkaline Phosphatase 92 U/L (46-116); Anion Gap 9 (5-15); BUN/Creatinine Ratio 15.6 (10.0-20.0); Bilirubin, Total 0.3 mg/dL (0.2-1.0); Blood Urea Nitrogen 10 mg/dL (9-23); Calcium 10.2 mg/dL (8.7-10.4); Carbon Dioxide 29 mmol/L (20-31); Chloride 103 mmol/L (98-107); Cholesterol 169 mg/dL (< 200); Glucose 93 mg/dL (74-106); HDL Cholesterol 57 mg/dL (40-59); Potassium 3.6 mmol/L (3.5-5.1); Sodium 141 mmol/L (136-145); Total Protein 7.1 g/dL (5.7-8.2); Triglycerides 119 mg/dL (< 150)
[2025-04-14 07:38] LABS: Alanine Aminotransferase 49 U/L (7-40)
[2025-04-14 07:41] LABS: Urine Protein, UAD Negative (Negative)
== END | disposition home or self-care (01) ==
LOC: LAB 06:09
PROVIDERS: ATTEND Internal Medicine
DX: Z01.812 Encounter for preprocedural laboratory examination (principal); Z79.899 Other long term (current) drug therapy; Z79.01 Long term (current) use of anticoagulants
CPT/HCPCS: 36415; 80053; 80061; 81001; 83036; 83540; 83550; 84439; 84443; 85025; 85610; 85730